=== PATIENT | female | born 1995 | race Two or more races ===

== ENCOUNTER → 2018-06-07 | Emergency (ER) | payer OTHER ==
[~2018-06-07] VITALS: Ht 154.9 cm; Wt 54.4 kg
== END | disposition home or self-care (01) ==
LOC: ER 18:55
DX: K29.70 Gastritis, unspecified, without bleeding (principal)

== ENCOUNTER 2018-09-05 14:21 | Emergency (ER) | payer OTHER ==
[~2018-09-05] VITALS: Ht 157.5 cm; Wt 54.4 kg
== END 2018-09-05 18:53 | disposition home or self-care (01) ==
LOC: ER 14:21
DX: B34.8 Other viral infections of unspecified site (principal); R50.9 Fever, unspecified; J11.1 Influenza due to unidentified influenza virus with other respiratory manifestations